=== PATIENT | female | born 1960 | race Caucasian/White ===

== ENCOUNTER → 2016-10-05 | Outpatient (CLI) | payer BC ==
--- NOTE | 2016-10-09 01:10 | XR ---
EXAMINATION TYPE: XR thoracic spine complete DATE OF EXAM: 10/05/2016 10:53 AM COMPARISON: NONE HISTORY: 55-year-old female thoracolumbar pain TECHNIQUE: 3 views FINDINGS: There is very gentle reversed S-shaped curvature of the thoracolumbar spine. There are 12 rib-bearing thoracic vertebral bodies. All pedicles are visualized. There is moderate disc/endplate degenerative change seen throughout particularly at the mid thoracic spine. Vertebral body heights are preserved and alignment is maintained. IMPRESSION: Minimal reverse S-shaped, degenerated curvature of the thoracolumbar spine. Moderate disc/endplate de generative change particularly in the mid thoracic spine. No vertebral compression collapse or malali gnment.
== END | disposition home or self-care (01) ==
LOC: RADXRYALE 10:21
PROVIDERS: ATTEND Family Medicine
DX: M47.814 Spondylosis without myelopathy or radiculopathy, thoracic region (principal); M43.8X5 Other specified deforming dorsopathies, thoracolumbar region
CPT/HCPCS: 72072

== ENCOUNTER → 2016-12-05 | Outpatient (CLI) | payer BC ==
--- NOTE | 2016-12-05 12:57 | BD ---
EXAMINATION TYPE: MG DEXA axial skeleton. DATE OF EXAM: 12/05/2016 COMPARISON: NONE CLINICAL HISTORY: 56-year-old female long-term use of medication Height: 62 IN Weight: 245 LBS FRAX RISK QUESTIONS: Alcohol (3 or more units per day): NO Family History (Parent hip fracture): NO Glucocorticoids (More than 3mos): NO (Ex: prednisone, prednisolone, methylprednisolone, dexamethasone, and hydrocortisone). History of Fracture in Adulthood: YES TOES LEFT FOOT AGE 53 Secondary Osteoporosis: 1. Type 1 Diabetes: NO 2. Hyperthyroidism: NO 3. Menopause before 45: YES PARTIALLY HYSTERECTOMY AGE 20 SARAH OVARIES REMOVED AGE 49 4. Malnutrition: NO 5. Chronic liver disease: NO Rheumatoid Arthritis: NO Current Tobacco Use: NO RISK FACTORS HISTORY OF: Family History of Osteoporosis: YES MOTHER Active: YES Postmenopausal woman: YES AGE 20 Take estrogen and/or progesterone medications: NOT NOW How long: AGE 25 - 33 MEDICATIONS: Thyroid Medications: YES Which medication: Levothyroxine How Lon YRS Additional Medications: LEVOTHYROXINE, Ativan, GOUT MEDS, LEXAPRO, EYE VITAMIN, LOPRESSOR, LASIX, BAY ER ASPIRIN, TRILEPTAL Additional History: PT HAD COLON CANCER AND RECTAL CANCER AT AGE 20 WITH RADIATION. 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 PT HAD HODGKIN'S LYMPHOMA AGE 55 WITH CHEMO. EXAM MEASUREMENTS: Bone mineral densitometry was performed using the [employer] System. Bone mineral density as measured about the Lumbar spine is: ----- L1-L4(G/cm2): 1.097 T Score Values are as follows: ----- L2: -1.2 ----- L3: 0.0 ----- L4: -0.5 ----- L1-L4: -0.7 Bone mineral density BASELINE Bone mineral density about the R hip (g/cm2): 0.825 Bone mineral density about the L hip (g/cm2): 0.801 T Score values are as follows: -----R Neck: -1.5 -----L Neck: -1.7 -----R Total: -0.5 -----L Total: -0.8 Bone mineral density BASELINE IMPRESSION: Osteopenia as indicated by T score values in the lumbar spine and both hips. There is slightly increased risk of fracture and the patient may be considered for treatment. Re-Screen 2-5 years. NOTE: T-SCORE=SD OF THE YOUNG ADULT MEAN.
== END | disposition home or self-care (01) ==
LOC: RADBDWWP 10:06
PROVIDERS: ATTEND Family Medicine
DX: M85.80 Other specified disorders of bone density and structure, unspecified site (principal); Z79.899 Other long term (current) drug therapy
CPT/HCPCS: 77080

== ENCOUNTER → 2017-06-05 | Outpatient (CLI) | payer MEDICARE ==
--- NOTE | 2017-06-05 15:40 | CT ---
EXAMINATION TYPE: CT iac wo con DATE OF EXAM: 06/05/2017 COMPARISON: CT neck August 31, 2014 HISTORY: Hearing loss with chronic right ear otorrhea per order. Headaches with vision changes and re peated right-sided ear infections per patient. CT DLP: 275 mGycm. Automated Exposure Control for Dose Reduction was Utilized. TECHNIQUE: CT scan of internal auditory canal is performed without contrast, thin cut axial images ar e obtained, coronal reformatted images are also reviewed. FINDINGS: The external auditory canals are patent bilaterally. Mastoid air cells show persistent opa cification and sclerosis on the right with more patchy opacification present laterally on the left. T here is soft tissue density surrounding the middle ear ossicles along superior lateral and inferior a spects on current study on the right. No suspicious surrounding soft tissue is seen on the left. The scutum is preserved bilaterally. The cochlea and the semicircular canals are symmetric and unremarka ble. Vestibular aqueduct redemonstrates stable prominence near axial image 49 causing thinning of po sterior temporal bone unchanged from prior CT. The internal carotid canal appear unremarkable. Temporomandibular joints show asymmetric mild to moderate right-sided narrowing versus opposite left side most prominent lateral aspect. Visualized paranasal sinuses show evidence of prior surgery at a ntral level bilaterally. There is mild mucosal thickening in anterior ethmoid sinuses bilaterally. Vi sualized portion brain parenchyma is felt within normal limits. IMPRESSION: Cannot exclude bilateral mastoiditis. Chronic component on the right is felt present. Th ere is persistent middle ear infection on the right noted more prominent from 2015 CT. Scutum is not suspiciously blunted to definitively suggest cholesteatoma. Other findings as noted above.
== END | disposition home or self-care (01) ==
LOC: RADCTMAIN 12:33
PROVIDERS: ATTEND Otolaryngology
DX: H66.91 Otitis media, unspecified, right ear (principal)
CPT/HCPCS: 70480

== ENCOUNTER → 2017-07-18 | Outpatient (CLI) | payer MEDICARE ==
--- NOTE | 2017-07-19 10:30 | MR ---
EXAMINATION TYPE: MR brain and iac wo/w con DATE OF EXAM: 07/18/2017 COMPARISON: NONE HISTORY: Hearing Loss Right side, Dizzy, Gadavist 11.5ml TECHNIQUE: Multiplanar, multisequence images of the brain and brainstem is performed without and with IV contras t, utilizing 11.5 mL intravenous Gadavist . FINDINGS: Diffusion weighted images demonstrate no evidence of a recent infarct or other diffusion ab normality. There is no evidence of cerebellopontine angle mass or acoustic schwannoma. Visualized oropharynx and nasopharynx symmetric. Mastoid air cells have a normal appearance. Partially empty sella turcica incidentally noted. There is a nasal septal deviation and mild changes of chronic sinusitis. No midline shift or mass eff ect. WHITE MATTER: There are 3 less than 5 mm punctate areas of abnormal signal within the white matter. No lesions perpendicular to the ventricular system. No enhancing lesions. No callosal lesions. IMPRESSION: 1. No evidence of cerebellopontine angle mass or acoustic schwannoma. 2. Minimal nonspecific white matter changes.
== END | disposition home or self-care (01) ==
LOC: RADMRIMAIN 20:14
PROVIDERS: ATTEND Otolaryngology Otology & Neurotology
DX: R90.82 White matter disease, unspecified (principal); I10 Essential (primary) hypertension
CPT/HCPCS: 82565; 70553; 36415; A9581

== ENCOUNTER → 2018-02-10 | Outpatient (CLI) | payer MEDICARE ==
--- NOTE | 2018-02-10 18:02 | XR ---
EXAMINATION TYPE: XR wrist complete 3 views RT, XR elbow complete 3 views RT DATE OF EXAM: 02/10/2018 COMPARISON: NONE HISTORY: 57 year-old female right elbow and wrist pain, increasing for one month. FINDINGS: Right wrist: The radiocarpal and distal radioulnar joint as well as the midcarpal compartment appear intact. There is mild degenerative change at the first CMC joint. Slight bony irregularity along the ulnar proxima l aspect of the lunate. No acute fracture, subluxation, or dislocation. Right Elbow: No elbow joint effusion. No acute fracture, subluxation, or dislocation. IMPRESSION: 1. Right wrist: Some subtle bony changes along the ulnar proximal aspect of the lunate bone may refle ct ulnar impaction syndrome. Correlate for any ulnar-sided wrist pain. Otherwise, no acute osseous ab normality seen. 2. Right elbow: No acute osseous abnormality seen.
== END | disposition home or self-care (01) ==
LOC: RADXRYALE 15:33
PROVIDERS: ATTEND Family Medicine
DX: M21.931 Unspecified acquired deformity of right forearm (principal); M25.531 Pain in right wrist; M25.521 Pain in right elbow

== ENCOUNTER → 2018-10-28 | Outpatient (CLI) | payer BC ==
--- NOTE | 2018-10-29 15:27 | MR ---
Right wrist MRI HISTORY: Right wrist pain Multiplanar multisequence imaging through the right wrist Correlation to plain film 02/10/2018 The abnormal density seen at the proximal aspect of the lunate bone on plain film shows an abnormal f ocus of signal, intermediate and low on T1, increased on T2 weighted sequences. Joint space loss is p resent at the radiocarpal joint, suspect some chondromalacia at the proximal aspect of the lunate, di stal aspect of the radius. Triangular fibrocartilage is intact. Scapholunate and lunotriquetral ligam ents are intact. Probable geodes present within the capitate bone. T2 hyperintensities in the volar a spect of the wrist are present with cluster of grapes type appearance overall measuring approximately 1.6 x 0.8 cm suggestive of ganglion cyst towards the radial aspect. There is T2 increased signal present at the level of the abductor pollicis longus and extensor pollic is brevis tendons. Abnormal thickening is present consistent with tenosynovitis, tendinosis. No sizab le joint effusion. IMPRESSION: De Quervain's tenosynovitis, correlate for painful restriction of motion of the thumb. Os teoarthritis. Ganglion cysts.
== END | disposition home or self-care (01) ==
LOC: RADMRIMAIN 16:01
PROVIDERS: ATTEND Family Medicine
DX: M65.4 Radial styloid tenosynovitis [de Quervain] (principal); M19.031 Primary osteoarthritis, right wrist; M67.431 Ganglion, right wrist

== ENCOUNTER → 2019-06-10 | Outpatient (CLI) | payer BC ==
--- NOTE | 2019-06-10 11:19 | XR ---
EXAMINATION TYPE: XR Hip Complete LT DATE OF EXAM: 06/10/2019 COMPARISON: 02/19/2012 femur HISTORY: Pain TECHNIQUE: 2 view left hip FINDINGS: No acute fractures are evident. Femoral head articulates with the acetabulum. Symphysis pub is is normal. Some degenerative changes left sacroiliac joint IMPRESSION: 1. No acute osseous abnormality left hip
== END | disposition home or self-care (01) ==
LOC: RADXRYALE 11:03
PROVIDERS: ATTEND Physician Assistant Medical
DX: M25.552 Pain in left hip (principal)
CPT/HCPCS: 73502

== ENCOUNTER → 2019-07-23 | Outpatient (CLI) | payer BC ==
--- NOTE | 2019-07-24 03:38 | MR ---
EXAMINATION TYPE: MR hip LT wo con DATE OF EXAM: 07/23/2019 COMPARISON: None HISTORY: Lt hip pain Body planar multiecho imaging of the pelvis and left hip was performed without contrast. The pelvic ring is intact. There is no evidence of pelvic fracture. Proximal femurs and hip joints ap pear intact. There is no evidence of hip dysplasia. There is no evidence of avascular necrosis. There is no joint effusion. Bladder distends smoothly. There is no free fluid in the pelvis. There is no sign of a pelvic mass. S acroiliac joints appear normal. Acetabula appear normal. IMPRESSION: normal MR scan of the pelvis and left hip. No evidence of avascular necrosis or any significant arthr itic disease.
--- NOTE | 2019-07-24 03:46 | MR ---
EXAMINATION TYPE: MR lumbar spine wo/w con DATE OF EXAM: 07/23/2019 COMPARISON: 07/10/2013 HISTORY: Lower back and lt hip pain CONTRAST: Standard multiplanar, multisequence MRI departmental protocol utilizing 12 mL intravenous Gadavist ga dolinium contrast. Lumbar vertebra have fairly normal alignment. There is decreased signal and disc space narrowing from L1 to L5. There is mild posterior disc bulging and herniation at L2-3 L3-4 L4-5 without significant impingement on the spinal canal. There is developmentally adequate spinal canal. There is no lumbar p araspinal mass. There is no spinal stenosis. Lumbar nerve roots appear fairly normal. The neural fora oswaldo are fairly well-maintained. There is no compression fracture. I see no focal bone destruction. T he sacroiliac joints appear normal. IMPRESSION: Small posterior disc herniations as above. No spinal stenosis. No fracture. Mild degenerative disc sp armond narrowing. Disc herniations appear increased compared to old MR scan.
== END | disposition home or self-care (01) ==
LOC: RADMRIMAIN 15:31
PROVIDERS: ATTEND Family Medicine
DX: M99.73 Connective tissue and disc stenosis of intervertebral foramina of lumbar region (principal); M51.26 Other intervertebral disc displacement, lumbar region; M25.552 Pain in left hip; M46.1 Sacroiliitis, not elsewhere classified; M70.62 Trochanteric bursitis, left hip
CPT/HCPCS: 72158; 73721; A9585

== ENCOUNTER → 2019-11-16 | Outpatient (CLI) | payer BC ==
--- NOTE | 2019-11-16 16:21 | CT ---
EXAMINATION TYPE: CT abdomen pelvis w con DATE OF EXAM: 11/16/2019 COMPARISON: 12/07/2015 INDICATION: Generalized pain DLP: 2866.5 mGycm, Automated exposure control for dose reduction was used. CONTRAST: 100 mL of Isovue 300. Study performed with Oral Contrast TECHNIQUE: Axial images were obtained from above the diaphragm to the pubic rami in the axial plane a t 5 mm thick sections. Reconstructed images are reviewed on the computer in the coronal plane. FINDINGS: Limited CT sections are obtained the lung bases. The lung bases are clear. CT ABDOMEN: There is an anterior right hemipelvis herniation containing mesenteric fat as well as loo ps of small bowel with contrast. No obstruction or dilated loops are evident. An ostomy is on the lef t anterior hemipelvis with loops of bowel. Mesenteric fat is adjacent. Liver: There is mild to moderate fatty infiltration to liver. No discrete masses or cysts are evident . Spleen: Normal Pancreas: Normal Adrenal glands: Left adrenal gland is enlarged measuring 3.5 x 2.7 cm. Gallbladder: Normal Kidneys: There may be some malplacement of the right kidney. No masses are evident. No hydronephrosis is present. No cysts are present. Delayed images were obtained through the kidneys, which remain unremarkable. Aorta: Vascular calcification is within the aorta. Inferior vena cava: Normal. CT PELVIS: Loops of bowel within the abdomen and pelvis are normal. There are loops of bowel which are incom pletely distended or lack oral contrast limiting their evaluation. Ostomy is in the left lower quadra nt. No obstructive changes are evident. Colon is not identified. Appendix: Normal as visualized. Urinary bladder: Normal. Genitourinary structures: Uterus and ovaries are not identified. Osseous structures: No suspicious lytic or sclerotic lesions. IMPRESSIONS: 1. Moderate fatty infiltration liver. Hepatosplenomegaly is present. 2. Right anterior pelvic wall herniation containing nonobstructed loops of bowel. 3. Ostomy in the left lower hemipelvis. Herniation of mesenteric fat and loops of bowel without obstr uction aren't the ostomy region.
== END | disposition home or self-care (01) ==
LOC: RADCTMAIN 12:42
PROVIDERS: ATTEND Internal Medicine Hematology & Oncology
DX: C18.9 Malignant neoplasm of colon, unspecified (principal); C81.13 Nodular sclerosis Hodgkin lymphoma, intra-abdominal lymph nodes; R16.2 Hepatomegaly with splenomegaly, not elsewhere classified; K76.0 Fatty (change of) liver, not elsewhere classified
CPT/HCPCS: 74177; Q9967

== ENCOUNTER → 2020-04-08 | Outpatient (CLI) | payer BC ==
--- NOTE | 2020-04-08 11:41 | XR ---
EXAMINATION TYPE: XR ankle complete RT DATE OF EXAM: 04/08/2020 COMPARISON: NONE HISTORY: 59 year-old female right ankle injury and pain at the Achilles tendon. TECHNIQUE: 3 views FINDINGS: Small posterior and plantar calcaneal spurs. The Achilles tendon appears intact. Small 3 mm corticate d ossicle below the lateral malleolus. Talar dome is intact. Ankle mortise is congruent. Preservation of the distal tibiofibular overlap. No acute fracture, subluxation, or dislocation. IMPRESSION: 1. Small posterior and plantar heel spurs. 2. Achilles tendon appears intact radiographically. If Achilles tendon pain worsens, consider follow- up ultrasound or MRI. 3. A 3 mm ossicle below the lateral malleolus could reflect sequela of remote injury. No acute osseou s abnormality seen.
== END | disposition home or self-care (01) ==
LOC: RADXRYALE 09:58
PROVIDERS: ATTEND Physician Assistant
DX: M77.31 Calcaneal spur, right foot (principal)

== ENCOUNTER → 2020-12-07 | Outpatient (CLI) | payer BC ==
--- NOTE | 2020-12-07 16:05 | USB ---
EXAMINATION TYPE: US breast limited LT DATE OF EXAM: 12/07/2020 COMPARISON: Mammogram same date CLINICAL HISTORY: R92.8 abnormal mammogram. Findings: Targeted left breast ultrasound was performed in the retroareolar region and axillary tail. No sonographic correlate for left nipple discharge. IMPRESSION: No mammographic or sonographic correlate for left nipple discharge. Clinical follow-up i s recommended. BI-RADS 1, negative. Yearly screening mammogram is recommended.
--- NOTE | 2020-12-08 09:09 | MM ---
Reason for exam: clinical finding. Last mammogram was performed 10 years and 1 month ago. History: Patient is postmenopausal, has history of colon cancer at age 19, and history of other cancer. Family history of breast cancer in paternal aunt at age 70. Excisional biopsy of the right breast, 2002. Took estrogen for 10 years. Physical Findings: Nurse did not find any significant physical abnormalities on exam. MG 3D Diag Mammo W/Cad SARAH Bilateral CC and MLO view(s) were taken. Prior study comparison: March 25, 2020, mammogram, performed at [facility]. March 11, 2019, mammogram, performed at [facility]. There are scattered fibroglandular densities. No mammographic correlate left discharge. These results were verbally communicated with the patient and result sheet given to the patient on 12/07/20. ASSESSMENT: Incomplete: need additional imaging evaluation, BI-RAD 0 RECOMMENDATION: Ultrasound of the left breast.
== END | disposition home or self-care (01) ==
LOC: RADMAMWWP 14:43
PROVIDERS: ATTEND Family Medicine
DX: R92.8 Other abnormal and inconclusive findings on diagnostic imaging of breast (principal); Z78.0 Asymptomatic menopausal state; Z85.038 Personal history of other malignant neoplasm of large intestine; Z80.3 Family history of malignant neoplasm of breast; Z79.818 Long term (current) use of other agents affecting estrogen receptors and estrogen levels
CPT/HCPCS: 77062; 77066

== ENCOUNTER → 2020-12-14 | Outpatient (CLI) | payer BC ==
--- NOTE | 2020-12-14 12:39 | CT ---
EXAMINATION TYPE: CT ChestAbdPelvis w con DATE OF EXAM: 12/14/2020 COMPARISON: 11/16/2019 HISTORY: follow up lymphoma CT DLP: 2360.6 mGycm CONTRAST: CT scan of the chest, abdomen and pelvis is performed with Oral Contrast and with IV Contrast, patien t injected with 100 mL of Isovue 300. CT Chest: LUNGS: The lungs are clear and free of infiltrate or atelectasis. No pulmonary nodule or mass is det ected. No pleural effusion or CT evidence of interstitial lung disease. MEDIASTINUM: Thoracic aorta is of normal caliber. The heart is not enlarged. No evidence for media stinal mass or adenopathy. HILAR STRUCTURES: No evidence for mass. No hilar adenopathy is appreciated. OTHER: No significant abnormality. CONTRAST CT ABDOMEN AND PELVIS FINDINGS: LIVER/GB: No calcified gallstones. Hepatic steatosis noted. No space occupying hepatic lesion. Omar iary tree is of normal caliber. PANCREAS: No inflammation. No distinct mass. SPLEEN: No splenic enlargement. No lesion seen. ADRENALS: Left adrenal mass measuring 3.3 cm maximal dimension versus 3.5 cm previously. Additional s maller left adrenal nodules. Right adrenal gland is unremarkable. KIDNEYS/BLADDER: No hydronephrosis. No nephrolithiasis. No distinct renal mass. BOWEL: Normal appendix. Normal bowel caliber. No inflammation. GENITAL ORGANS: No gross abnormality. LYMPH NODES: Small subcentimeter lymph nodes AORTA: No significant abnormality. OSSEOUS STRUCTURES: No significant abnormality is seen. OTHER: Bilateral anterior abdominal wall hernias are redemonstrated which containing loops of small b owel without incarceration. All IMPRESSION: 1. No evidence for adenopathy greater than 1 cm throughout the chest abdomen and pelvis. 2. Fatty hepatic infiltration persists. 3. Bilateral anterior abdominal wall hernia is unchanged from prior study. Left-sided ostomy. 4. Stable left adrenal mass.
== END | disposition home or self-care (01) ==
LOC: RADCTMAIN 10:05
PROVIDERS: ATTEND Internal Medicine Hematology & Oncology
DX: K76.0 Fatty (change of) liver, not elsewhere classified (principal); K46.9 Unspecified abdominal hernia without obstruction or gangrene; E27.8 Other specified disorders of adrenal gland; Z85.72 Personal history of non-Hodgkin lymphomas
CPT/HCPCS: 82565; 84520; 71260; 74177; 36415; Q9967

== ENCOUNTER 2021-11-15 21:40 | Emergency (ER) | payer BC ==
[2021-11-16 00:19] VITALS: RESP 18; TEMP 97.8
--- NOTE | 2021-11-16 01:45 | ED ---
Extremity Problem HPI - General Source: patient, RN notes reviewed Mode of arrival: ambulatory Limitations: no limitations - History of Present Illness MD Complaint: extremity pain <Shay Pandya - Last Filed: 11/16/21 02:53> <Reno Benitez - Last Filed: 11/16/21 04:43> - General Chief complaint: Extremity Problem,Nontraumatic Stated complaint: arm & neck swelling, possible blood clot Time Seen by Provider: 11/16/21 01:28 - History of Present Illness Initial comments: He comes to the ER complaining of some swelling to her right upper arm which radiates into the right shoulder and right neck. Patient states that the pain and tenderness is exacerbated when she turns her head to the right. Patient states that she was doing an extensive amount of yard work over the past few days and seems to have exacerbated the area. Patient does have a history of a blood clot in the right arm which did go into the shoulder area. This was 2009. Patient denying any chest pain or shortness of breath. No headache, no fever or chills, no changes in vision or hearing, no sore throat or difficulty with speech, no neck pain, no chest pain or shortness of breath, no abdominal pain, no nausea or vomiting, no changes in urination or bowel movements, no numbness or tingling, no skin rashes or lesions. Patient has a history of bowel cancer, non-Hodgkin's lymphoma, family polyposis, right upper extremities DVT. Hypertension. (Shay Pandya) - Related Data Home Medications Medication Instructions Recorded Confirmed Diphenoxylate HCl/Atropine 1 tab PO DIRECTED PRN 01/08/14 01/20/16 [Lomotil] Furosemide [Lasix] 40 mg PO QAM 01/08/14 01/20/16 LORazepam [Ativan] 0.5 mg PO BID 01/08/14 01/19/16 Levothyroxine Sodium [Synthroid] 175 mcg PO DAILY 01/08/14 01/19/16 Metoprolol Tartrate 50 tab PO QAM 01/08/14 01/19/16 allopurinoL [Zyloprim] 300 mg PO QAM 01/08/14 01/20/16 Fish Oil/Dha/Epa [Fish Oil 1,200 1 each PO DAILY 05/02/15 01/19/16 mg Fish Oil] traMADol HCl [Ultram] 50 mg PO TID 05/02/15 01/19/16 Amoxic-Pot Clav 875-125Mg 1 tab PO BID 01/19/16 01/19/16 [Augmentin 875-125] OXcarbazepine [Trileptal] 150 mg PO Q8H PRN 01/19/16 01/19/16 OXcarbazepine [Trileptal] 300 mg PO BID 01/19/16 01/19/16 OXcarbazepine [Trileptal] 450 mg PO HS 01/19/16 01/19/16 Vit C/E/Zn/Coppr/Lutein/Zeaxan 1 tab PO DAILY 01/19/16 01/20/16 [Preservision Areds 2 Softgel] Previous Rx's Medication Instructions Recorded Hydrocodone/Acetaminophen [[place] 1 - 2 each PO Q4HR PRN #30 tab 01/20/16 5-325] Allergies Allergy/AdvReac Type Severity Reaction Status Date / Time celecoxib [From Celebrex] Allergy Severe headache Verified 01/19/16 09:49 codeine Allergy Severe headache Verified 01/19/16 09:49 beclomethasone dipropionate Allergy Chest Pain Verified 01/19/16 09:49 [From Vanceril] gabapentin [From Neurontin] Allergy Diarrhea Verified 01/19/16 09:59 lisinopril [From Prinivil] Allergy Hallucinati Verified 01/19/16 09:49 ons morphine Allergy Itching Verified 01/19/16 09:49 Penicillins Allergy Itching Verified 01/19/16 09:49 povidone-iodine Allergy Rash/Hives Verified 01/19/16 10:25 [From Betadine] propoxyphene napsylate Allergy Nausea & Verified 01/19/16 09:49 [From Darvocet-N] Vomiting soap [From Betadine] Allergy Rash/Hives Verified 01/19/16 10:25 Review of Systems ROS Other: All systems not noted in ROS Statement are negative. <Shay Pandya - Last Filed: 11/16/21 02:53> ROS Other: All systems not noted in ROS Statement are negative. <Reno Benitez - Last Filed: 11/16/21 04:43> ROS Statement: Those systems with pertinent positive or pertinent negative responses have been documented in the HPI. Past Medical History Past Medical History: Cancer, Hypertension, Sleep Apnea/CPAP/BIPAP, Thyroid Disorder Additional Past Medical History / Comment(s): CURRENT: RASH ON BACK, BOIL & RIGHT EAR INFECTION, POSITIVE NODE NOTED ON PET SCAN. HX: Gout. DVT OF JUGULAR. TWO BOUTS OF BOWEL CANCER (LARGE & SMALL). NO CPAP. History of Any Multi-Drug Resistant Organisms: MRSA Date of last positivie culture/infection: 2009 MDRO Source:: Infected port Past Surgical History: Hysterectomy Additional Past Surgical History / Comment(s): Thyroidectomy. C5-6 fusion. Nasal surgery. Colon resection X 3 (FIRST AT AGE 19 FOR CANCER). Ileostomy. OVARIAN TUMOR. brain surgery, breast milk duct removal. Past Anesthesia/Blood Transfusion Reactions: Family History of Problems w/ Anesthesia Additional Past Anesthesia/Blood Transfusion Reaction / Comment(s): HARD TO WAKE UP. RESPIRATORY DISTRESS IN PACU. MOTHER HAD HEADACHE. Past Psychological History: Anxiety Smoking Status: Former smoker Past Alcohol Use History: Rare Past Drug Use History: None Reported <Shay Pandya - Last Filed: 11/16/21 02:53> General Exam Limitations: no limitations General appearance: alert, in no apparent distress, obese Head exam: Present: atraumatic, normocephalic, normal inspection Eye exam: Present: normal appearance, PERRL, EOMI. Absent: scleral icterus, conjunctival injection, periorbital swelling ENT exam: Present: normal exam, mucous membranes dry, mucous membranes moist. Absent: normal oropharynx, TM's normal bilaterally, normal external ear exam Neck exam: Present: normal inspection, full ROM, other (Patient has tenderness to palpation to the right neck musculature. However this is difficult to ascertain due to body habitus. No bruit. Carotid pulses palpable 2+ out of 4.). Absent: tenderness, meningismus, lymphadenopathy Respiratory exam: Present: normal lung sounds bilaterally. Absent: respiratory distress, wheezes, rales, rhonchi, stridor, chest wall tenderness, accessory muscle use, decreased breath sounds, prolonged expiratory Cardiovascular Exam: Present: regular rate, normal rhythm, normal heart sounds. Absent: systolic murmur, diastolic murmur, rubs, gallop, clicks GI/Abdominal exam: Present: soft, normal bowel sounds. Absent: distended, tenderness, guarding, rebound, rigid Extremities exam: Present: normal inspection, full ROM, normal capillary refill, other (Patient has some soft tissue tenderness involving the right upper arm and right shoulder area. No evidence of bony point tenderness.). Absent: tenderness, pedal edema, joint swelling, calf tenderness Back exam: Present: normal inspection Neurological exam: Present: alert, oriented X3, CN II-XII intact Psychiatric exam: Present: normal affect, normal mood Skin exam: Present: warm, dry, intact, normal color. Absent: rash <Shay Pandya - Last Filed: 11/16/21 02:53> - General Exam Comments Initial Comments: 61-year-old female in no significant distress at the time I'm seeing her. Does not appear to be ill or toxic. Vital signs reviewed (Shay Pandya) Course Vital Signs 11/16/21 00:10 Temperature 97.8 F Pulse Rate 82 Respiratory 18 Rate Blood Pressure 146/90 O2 Sat by Pulse 97 Oximetry Medical Decision Making <Shay Pandya - Last Filed: 11/16/21 02:53> - Lab Data Result diagrams: 11/16/21 02:56 11/16/21 02:56 <Reno Benitez - Last Filed: 11/16/21 04:43> - Lab Data Lab Results 11/16/21 11/16/21 11/16/21 Range/Units 02:56 02:56 02:56 WBC 4.9 (3.8-10.6) k/uL RBC 4.43 (3.80-5.40) m/uL Hgb 14.1 (11.4-16.0) gm/dL Hct 42.8 (34.0-46.0) % MCV 96.6 (80.0-100.0) fL MCH 31.8 (25.0-35.0) pg MCHC 33.0 (31.0-37.0) g/dL RDW 14.8 (11.5-15.5) % Plt Count 115 L (150-450) k/uL MPV 9.0 Neutrophils % 50 % Lymphocytes % 34 % Monocytes % 9 % Eosinophils % 3 % Basophils % 1 % Neutrophils # 2.5 (1.3-7.7) k/uL Lymphocytes # 1.6 (1.0-4.8) k/uL Monocytes # 0.4 (0-1.0) k/uL Eosinophils # 0.2 (0-0.7) k/uL Basophils # 0.0 (0-0.2) k/uL PT 10.8 (9.0-12.0) sec INR 1.0 (<1.2) APTT 22.8 (22.0-30.0) sec Sodium 137 (137-145) mmol/L Potassium 3.5 (3.5-5.1) mmol/L Chloride 103 (98-107) mmol/L Carbon Dioxide 27 (22-30) mmol/L Anion Gap 7 mmol/L BUN 19 H (7-17) mg/dL Creatinine 1.00 (0.52-1.04) mg/dL Est GFR (CKD-EPI)AfAm 72 (>60 ml/min/1.73 sqM) Est GFR (CKD-EPI)NonAf 62 (>60 ml/min/1.73 sqM) Glucose 99 (74-99) mg/dL Calcium 8.5 (8.4-10.2) mg/dL Magnesium 2.0 (1.6-2.3) mg/dL Total Bilirubin 0.4 (0.2-1.3) mg/dL AST 36 (14-36) U/L ALT 34 (4-34) U/L Alkaline Phosphatase 87 (38-126) U/L Troponin I (0.000-0.034) ng/mL Total Protein 6.6 (6.3-8.2) g/dL Albumin 4.1 (3.5-5.0) g/dL 11/16/21 Range/Units 02:56 WBC (3.8-10.6) k/uL RBC (3.80-5.40) m/uL Hgb (11.4-16.0) gm/dL Hct (34.0-46.0) % MCV (80.0-100.0) fL MCH (25.0-35.0) pg MCHC (31.0-37.0) g/dL RDW (11.5-15.5) % Plt Count (150-450) k/uL MPV Neutrophils % % Lymphocytes % % Monocytes % % Eosinophils % % Basophils % % Neutrophils # (1.3-7.7) k/uL Lymphocytes # (1.0-4.8) k/uL Monocytes # (0-1.0) k/uL Eosinophils # (0-0.7) k/uL Basophils # (0-0.2) k/uL PT (9.0-12.0) sec INR (<1.2) APTT (22.0-30.0) sec Sodium (137-145) mmol/L Potassium (3.5-5.1) mmol/L Chloride (98-107) mmol/L Carbon Dioxide (22-30) mmol/L Anion Gap mmol/L BUN (7-17) mg/dL Creatinine (0.52-1.04) mg/dL Est GFR (CKD-EPI)AfAm (>60 ml/min/1.73 sqM) Est GFR (CKD-EPI)NonAf (>60 ml/min/1.73 sqM) Glucose (74-99) mg/dL Calcium (8.4-10.2) mg/dL Magnesium (1.6-2.3) mg/dL Total Bilirubin (0.2-1.3) mg/dL AST (14-36) U/L ALT (4-34) U/L Alkaline Phosphatase (38-126) U/L Troponin I <0.012 (0.000-0.034) ng/mL Total Protein (6.3-8.2) g/dL Albumin (3.5-5.0) g/dL - EKG Data EKG Comments: EKG done at 1:46 AM and read by the ED attending physician reveals left axis deviation and normal intervals, no acute ST or T-wave changes. Patient does have evidence of T-wave flattening of unknown etiology in lead V2 and V3. 2 lesser extent in lead 3. No ST depression or elevation. When compared to the previous study from 2014 there is no significant change. (Shay Pandya) Disposition <Shay Pandya - Last Filed: 11/16/21 02:53> Is patient prescribed a controlled substance at d/c from ED?: No <Reno Benitez - Last Filed: 11/16/21 04:43> Clinical Impression: Atypical chest pain, Right arm pain Disposition: HOME SELF-CARE Condition: Good Instructions (If sedation given, give patient instructions): Arm Pain (ED) Referrals: Nirmal Bassett MD [REFERRING] - 1-2 days
--- NOTE | 2021-11-16 02:25 | US ---
EXAMINATION TYPE: US venous doppler duplex UE RT DATE OF EXAM: 11/16/2021 COMPARISON: NONE CLINICAL HISTORY: arm pain, hx of blood clot in that area. Patient states she has a hx of a "blockage " in the right jugular vein. Today patient has neck swelling and arm pain from yard work. SIDE PERFORMED: Right Right Arm: Negative for DVT IMPRESSION: Negative exam. No evidence of deep vein thrombosis in the right arm. There is patency of the jugular vein and subclavian vein.
[2021-11-16 03:06] LABS: Basophils % (A) 1 %; Eosinophils # (A) 0.2 k/uL (0-0.7); Eosinophils % (A) 3 %; HCT 42.8 % (34.0-46.0); HGB 14.1 gm/dL (11.4-16.0); Lymphocytes # (A) 1.6 k/uL (1.0-4.8); Lymphocytes % (A) 34 %; MCH 31.8 pg (25.0-35.0); MCV 96.6 fL (80.0-100.0); Monocytes # (A) 0.4 k/uL (0-1.0); Monocytes % (A) 9 %; Neutrophils # (A) 2.5 k/uL (1.3-7.7); Neutrophils % (A) 50 %; Platelet Count 115 k/uL (150-450); RBC 4.43 m/uL (3.80-5.40); RDW 14.8 % (11.5-15.5); WBC 4.9 k/uL (3.8-10.6)
[2021-11-16 03:19] LABS: Albumin 4.1 g/dL (3.5-5.0); Calcium 8.5 mg/dL (8.4-10.2); Potassium 3.5 mmol/L (3.5-5.1); Total Bilirubin 0.4 mg/dL (0.2-1.3); Total Protein 6.6 g/dL (6.3-8.2)
[2021-11-16 03:27] LABS: Partial Thromboplastin Time 22.8 sec (22.0-30.0); Prothrombin Time 10.8 sec (9.0-12.0)
--- NOTE | 2021-11-16 04:08 | XR ---
EXAM: XR Chest, 2 Views CLINICAL HISTORY: ITS.REASON XR Reason: Chest Pain TECHNIQUE: Frontal and lateral views of the chest. COMPARISON: No relevant prior studies available. FINDINGS: Lungs: Unremarkable. No infiltration, atelectasis or mass density. Pleural space: Unremarkable. No pneumothorax. No pleural fluid. Heart: Moderately severe cardiomegaly. Mediastinum: Unremarkable. Bones/joints: Unremarkable. No acute abnormalities. IMPRESSION: No acute findings in the chest. Cardiomegaly.
[2021-11-16] MEDS ORDERED: HYDROmorphone 1 MG/ML 1 ML SYRINGE IVP STA (04:41)
[2021-11-16 05:07] VITALS: BP 136/84; PULSE 79
== END 2021-11-16 05:20 | disposition home or self-care (01) ==
LOC: EC 21:40
DX: R07.89 Other chest pain (principal); M79.601 Pain in right arm; I10 Essential (primary) hypertension; E07.9 Disorder of thyroid, unspecified; Z79.899 Other long term (current) drug therapy; Z87.891 Personal history of nicotine dependence; Z88.5 Allergy status to narcotic agent; Z88.6 Allergy status to analgesic agent; Z88.0 Allergy status to penicillin; Z91.048 Other nonmedicinal substance allergy status
CPT/HCPCS: 36415; 93005; 80053; 83735; 84484; 85025; 85610; 85730; 71046; 93971; 99285; 96374; J1170

== ENCOUNTER → 2021-12-08 | Outpatient (CLI) | payer BC ==
--- NOTE | 2021-12-08 08:08 | CT ---
EXAMINATION TYPE: CT soft tissue neck w con CT DLP: 639.1 mGycm, Automated exposure control for dose reduction was used. DATE OF EXAM: 12/08/2021 7:52 AM COMPARISON: 08/31/2014 CT neck. CLINICAL INDICATION:Female, 61 years old with history of R22.1 Localized swelling/mass/lump neck, sta rted off with swelling to Rt arm up Rt side of neck, now has tenderness under Rt side of jaw TECHNIQUE: Standard enhanced CT of the neck following intravenous administration of 70 cc of Isovue 3 00. Axial sections with coronal and sagittal reformats were obtained. FINDINGS: Brain: Visualized portions are grossly unremarkable. Orbits: Unremarkable Sinuses: Grossly unremarkable. Spaces of the neck: Clear and symmetric. Visualized portions of the neck with careful attention to th e right jaw and right cheek demonstrate no evidence of organizing fluid collection or mass. No signif icant fat stranding changes are identified Musculoskeletal: No acute osseous pathology. Multilevel degeneration changes seen throughout the spin e with straightening of the spine and ankylosis of C5 and C6. Postsurgical changes to the calvarium o n the right. Lymph nodes: Multiple nonenlarged lymph nodes are seen along both anterior chains of the neck. Vascular structures: Minimal atherosclerotic plaque of the internal carotid arteries at the bifurcati on. Thoracic Inlet/airway: Airway is patent. The lung apices are clear. Soft tissues/Thyroid: Thyroid and remainder of the soft tissues are unremarkable. Other: none. IMPRESSION No definite evidence for abscess or significant abnormality to explain the patient's mass/swelling/hunter mp in the neck and tenderness under the right side of the jaw.
== END | disposition home or self-care (01) ==
LOC: RADCTMAIN 06:44
PROVIDERS: ATTEND Family Medicine
DX: R22.1 Localized swelling, mass and lump, neck (principal)
CPT/HCPCS: 82565; 84520; 70491; 36415; Q9967

== ENCOUNTER → 2022-02-13 | Outpatient (CLI) | payer BC ==
--- NOTE | 2022-02-13 14:32 | CT ---
EXAMINATION TYPE: CT ChestAbdPelvis w con CT DLP: 2629.5 mGycm, Automated exposure control for dose reduction was used. DATE OF EXAM: 02/13/2022 1:34 PM COMPARISON: CT chest abdomen and pelvis 12/14/2020. CLINICAL INDICATION:Female, 61 years old with history of C18.9 Colon ca; Technique: Multiple axial images of the chest, abdomen, and pelvis were obtained following the intrav enous administration of 75 mL Isovue-300. Oral contrast administered. Two-dimensional coronal and sag ittal reconstructions were obtained. Findings: CHEST: LUNGS/ PLEURA: No pneumothorax, pleural effusion, focal consolidation. Stable right lower lobe calcif ied granuloma. Stable right lower lobe 6 mm pulmonary nodule (series 5, image 28). No new or enlargin g pulmonary nodules. AIRWAY: Patent and unremarkable.. HEART: Mildly enlarged heart. No pericardial effusion. Coronary artery calcifications. MEDIASTINUM: No gross evidence of adenopathy. Calcified right hilar nonenlarged lymph nodes. VASCULATURE: No aortic aneurysm. MUSCULOSKELETAL: No acute osseous abnormalities. No aggressive osseous lesion. SOFT TISSUES/LYMPH NODES: Unremarkable. LOWER NECK: No significant findings. ABDOMEN: ABDOMEN LIVER: Diffusely hypoattenuating parenchyma. GALLBLADDER AND BILE DUCTS: Contracted gallbladder. No biliary ductal dilatation. PANCREAS: Unremarkable. SPLEEN: Unremarkable. ADRENAL GLANDS: Stable left adrenal gland heterogenous mass measuring 3.3 x 2.7 cm, previously 3.3 cm . Additional similar smaller left adrenal nodules. Right adrenal gland is unremarkable. KIDNEYS AND URETERS: No evidence of hydronephrosis or renal calculus. The kidneys enhance symmetrical ly. PELVIS BLADDER: Bladder is under distended, limiting evaluation. REPRODUCTIVE: The uterus is surgically absent. ABDOMEN & PELVIS STOMACH AND BOWEL: Stomach and duodenum are unremarkable. No focal wall thickening or surrounding inf lammatory changes. No evidence of bowel obstruction. PERITONEUM: No evidence of pneumoperitoneum or free fluid. Postsurgical changes with multiple scatter ed surgical clips within the pelvis. VASCULATURE: No evidence of aortic aneurysm. MUSCULOSKELETAL: No acute osseous abnormalities. No aggressive osseous lesion. Multilevel degenerativ e disc disease. Limbus vertebrae involving the L3 vertebral body. Grade 1 anterolisthesis of L4 on L5 without evidence of pars defects. LYMPH NODES: No gross evidence for lymphadenopathy. SOFT TISSUE/ABDOMINAL WALL: Re-demonstration of right anterior abdominal wall hernias containing nono bstructed small bowel loops. Left lower quadrant ostomy containing fat and nodular to small bowel. Po stsurgical changes anterior abdominal wall with small fat filled hernias. IMPRESSION: 1. No evidence for metastasis within the chest or local recurrence. 2. Stable left adrenal mass. 3. Bilateral anterior abdominal wall hernias containing nonobstructive small bowel with left-sided os danita. 4. Hepatic steatosis.
== END | disposition home or self-care (01) ==
LOC: RADCTMAIN 11:33
PROVIDERS: ATTEND Internal Medicine Hematology & Oncology
DX: C18.9 Malignant neoplasm of colon, unspecified (principal); K76.0 Fatty (change of) liver, not elsewhere classified; E27.9 Disorder of adrenal gland, unspecified; K46.9 Unspecified abdominal hernia without obstruction or gangrene
CPT/HCPCS: 82565; 84520; 71260; 74177; Q9967

== ENCOUNTER → 2022-08-27 | Outpatient (CLI) | payer BC ==
--- NOTE | 2022-08-27 09:45 | NM ---
EXAMINATION TYPE: NM hepatobiliary w EF DATE OF EXAM: 08/27/2022 COMPARISON: NONE INDICATION: Abdominal discomfort TECHNIQUE: After the intravenous administration of 4.99 mCi Tc 99m Mebrofenin hepatobiliary scintigra phy is performed. Images were obtained immediately post injection. FINDINGS: There is prompt uptake and excretion of radiotracer by the liver. Extrahepatic ducts are identified at 4 minutes. The gallbladder is visualized within 4 minutes. Small bowel activity is noted at 60 minutes. At one hour 8 ounces of oral Ensure plus is given to mimic CCK and gallbladder ejection fraction is c alculated at 93 %, which is elevated. (Normal >35% and <80%.). Patient had abdominal discomfort dur ing this portion of the examination following the oral administration of Ensure. IMPRESSION: 1. Correlate for biliary hyperkinesia. Elevated ejection fraction of 93%.
== END | disposition home or self-care (01) ==
LOC: RADNMMAIN 06:48
PROVIDERS: ATTEND Family Medicine
DX: R10.10 Upper abdominal pain, unspecified (principal); R11.2 Nausea with vomiting, unspecified
CPT/HCPCS: 78226; A9537

== ENCOUNTER → 2022-12-10 | Outpatient (CLI) | payer BC ==
--- NOTE | 2022-12-10 11:29 | XR ---
EXAMINATION TYPE: XR knee complete LT DATE OF EXAM: 12/10/2022 10:57 AM INDICATION: Patient age:Female; 62 years old; Reason for study: [id number] LT KNEE PAIN; COMPARISON: None. TECHNIQUE: The Left knee(s) was examined in Frontal, lateral and oblique projections. FINDINGS: No evidence of any acute osseous pathology, soft tissue swelling, or joint effusion is no jean. Tricompartmental osteophyte formation involving the femoral condyles, tibial plateau and patella . Mild joint space narrowing. Probable bone island in the right femoral condyle. IMPRESSION: 1. No acute osseous pathology. 2. Mild tricompartmental osteoarthritic changes.
== END | disposition home or self-care (01) ==
LOC: RADXRYALE 10:18
PROVIDERS: ATTEND Family Medicine
DX: M17.12 Unilateral primary osteoarthritis, left knee (principal)